=== PATIENT | female | born 1980 | race African-American/Black ===

== ENCOUNTER 2017-04-25 07:59 | Inpatient (IN) | payer OTHER ==
[~2017-04-25] VITALS: Ht 162.6 cm; Wt 93.9 kg
--- NOTE | 2017-04-25 08:10 | Emergency Room Report ---
History of Present Illness General Chief Complaint: chest pain Source: Patient Present Illness HPI Patient is a 37-year-old female presented after having increased right-sided chest pain. She describes this as a throbbing sensation. The patient states that she had increased right-sided chest soreness. She denies any change with exertion. She states that this had been present constantly for about a day. She prior history of marijuana smoking daily but denies cigarette smoker. She reports having no change in the pain with deep breath. Allergies: Coded Allergies: No Known Allergies (Unverified , 04/25/17) Patient History Past Medical History: see triage record Reviewed Nursing Documentation: PMH: Agreed, PSxH: Agreed Review of Systems All Other Systems: negative except mentioned in HPI Physical Exam Sp02 EP Interpretation: reviewed, normal General Appearance: normal inspection, well appearing, no apparent distress, alert, GCS 15 Head: atraumatic ENT: normal ENT inspection, hearing grossly normal, normal voice Neck: normal inspection, full range of motion, supple, no bony tend Respiratory: normal inspection, lungs clear, normal breath sounds, no respiratory distress, no retraction, no wheezing Cardiovascular #1: regular rate, rhythm, no edema Gastrointestinal: normal inspection, normal bowel sounds, non tender, soft, no guarding, no hernia Genitourinary: no CVA tenderness Musculoskeletal: normal inspection, back normal, normal range of motion Neurologic: normal inspection, alert, oriented x3, responsive, 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 Differential diagnosis included but was not limited to acute coronary syndrome, pulmonary embolism, pneumonia, aortic dissection, shingles, pneumothorax, aortic dissection, esophageal rupture, pericarditis. Because of complexity of patient's case laboratory testing and imaging studies were ordered.A d-dimer was noted be negative. EKG interpreted by me showed normal sinus rhythm with a rate of 60s with nonspecific T-wave inversion. Patient was given aspirin as well as pain medication. A chest x- ray one view interpreted by me showed low lung volumes without evident infiltrate normal cardiac size. Because the patient's concerning history patient be admitted for further evaluation to Dr. hooks Labs Test 04/25/17 08:22 04/25/17 08:55 White Blood Count 5.7 K/UL (4.8-10.8) Red Blood Count 4.34 M/UL (4.20-5.40) Hemoglobin 13.7 G/DL (12.0-16.0) Hematocrit 41.9 % (37.0-47.0) Mean Corpuscular Volume 96 FL (80-99) Mean Corpuscular Hemoglobin 31.6 PG (27.0-31.0) Mean Corpuscular Hemoglobin Concent 32.8 G/DL (32.0-36.0) Red Cell Distribution Width 12.8 % (11.6-14.8) Platelet Count 240 K/UL (150-450) Mean Platelet Volume 7.6 FL (6.5-10.1) Neutrophils (%) (Auto) 63.2 % (45.0-75.0) Lymphocytes (%) (Auto) 25.6 % (20.0-45.0) Monocytes (%) (Auto) 9.1 % (1.0-10.0) Eosinophils (%) (Auto) 0.9 % (0.0-3.0) Basophils (%) (Auto) 1.2 % (0.0-2.0) D-Dimer 321 ng/mL (<500) Sodium Level 139 mEQ/L (135-145) Potassium Level 3.8 mEQ/L (3.4-4.9) Chloride Level 102 mEQ/L (98-107) Carbon Dioxide Level 27 mEQ/L (20-30) Anion Gap 10 (5-15) Blood Urea Nitrogen 8 mg/dL (7-23) Creatinine 0.7 mg/dL (0.5-0.9) Estimat Glomerular Filtration Rate > 60 mL/min (>60) Glucose Level 120 mg/dL (74-106) Calcium Level 8.7 mg/dL (8.6-10.2) Total Bilirubin 0.3 mg/dL (0.0-1.2) Aspartate Amino Transf (AST/SGOT) 15 U/L (5-40) Alanine Aminotransferase (ALT/SGPT) 17 U/L (3-33) Alkaline Phosphatase 58 U/L (35-104) Total Creatine Kinase 259 U/L (26-140) Creatine Kinase MB 1.8 ng/mL (< 3.8) Creatine Kinase MB Relative Index 0.6 Troponin I < 0.30 ng/mL (<=0.30) Pro-B-Type Natriuretic Peptide 20 pg/mL (0-125) Total Protein 7.4 g/dL (6.6-8.7) Albumin 4.4 g/dL (3.5-5.2) Globulin 3.0 g/dL Albumin/Globulin Ratio 1.4 (1.0-2.7) Urine HCG, Qualitative Negative Status: unchanged Disposition: ADMITTED INPATIENT Darryl John Apr 25, 2017 08:10
[2017-04-25] MEDS ORDERED: NKM (08:11)
[2017-04-25] MEDS ORDERED: Aspirin Baby 81mg ORAL ONE (08:15)
[2017-04-25 08:32] VITALS: BP 134/54
[2017-04-25 08:48] LABS: BASOPHILS % (AUTO) 1.2 % (0.0-2.0); EOSINOPHILS % (AUTO) 0.9 % (0.0-3.0); LYMPHOCYTES % (AUTO) 25.6 % (20.0-45.0); MEAN CORPUSCULAR HEMOGLOBIN 31.6 PG (27.0-31.0); MEAN CORPUSCULAR HGB CONC 32.8 G/DL (32.0-36.0); MEAN CORPUSCULAR VOLUME 96 FL (80-99); MEAN PLATELET VOLUME 7.6 FL (6.5-10.1); MONOCYTES % (AUTO) 9.1 % (1.0-10.0); NEUTROPHILS % (AUTO) 63.2 % (45.0-75.0); PLATELET COUNT 240 K/UL (150-450); RED BLOOD COUNT 4.34 M/UL (4.20-5.40); RED CELL DISTRIBUTION WIDTH 12.8 % (11.6-14.8); WHITE BLOOD COUNT 5.7 K/UL (4.8-10.8)
[2017-04-25 09:03] LABS: ALANINE AMINOTRANSFERASE 17 U/L (3-33); ALBUMIN/GLOBULIN RATIO 1.4 (1.0-2.7); ANION GAP 10 (5-15); ASPARTATE AMINO TRANSFERASE 15 U/L (5-40); CALCIUM 8.7 mg/dL (8.6-10.2); CARBON DIOXIDE 27 mEQ/L (20-30); CHLORIDE 102 mEQ/L (98-107); CREATININE 0.7 mg/dL (0.5-0.9); GLOMERULAR FILTRATION RATE > 60 mL/min (>60); HEMOLYSIS 4; POTASSIUM 3.8 mEQ/L (3.4-4.9); SODIUM 139 mEQ/L (135-145); TOTAL PROTEIN 7.4 g/dL (6.6-8.7)
[2017-04-25 09:07] LABS: TROPONIN I < 0.30 ng/mL (<=0.30)
[2017-04-25 09:13] LABS: CKMB 1.8 ng/mL (< 3.8)
--- NOTE | 2017-04-25 09:38 | Diagnostic Imaging Report ---
Indication: Chest pain Technique: XRAY CHEST 1 V Comparison: None Findings: There is poor inspiration with bronchovascular crowding. Cardiomediastinal silhouette is within normal limits. There is no consolidation or pleural effusion. Osseous structures demonstrate no acute abnormality. Impression: Poor inspiration with bronchovascular crowding. Mild pulmonary vascular congestion not excluded. Followup recommended.
[2017-04-25 10:45] VITALS: BP 130/74
[2017-04-25] MEDS ORDERED: Morphine Sulfate 2mg/ml Inj IVP ONE (11:15)
--- NOTE | 2017-04-25 12:54 | History and Physical ---
History of Present Illness General Date patient seen: Apr 25, 2017 Time patient seen: 12:00 Reason for Hospitalization: Chest Pain Present Illness HPI 37y/old female presented with c/o right sided chest pain x 1 month, worse today pain is constantly present radiates to the back reports R side chest soreness no SOB, no exertional component, denies any change with exertion. denies fevers, chills, cough, congestion no wheezing, admits to smoking marijuana on a daily basis, no cigarette smoker denies illicit drug use, ETOH-socially admits to lots of stress in her life, anxiety workup in ED revealed stable VS, pulse oz stable o RA labs unremarkable ECG with TWI in lateral leads D dimer -321 urine test negative CXR with Poor inspiration with bronchovascular crowding. Mild pulmonary vascular congestion not excluded. mother at 40 form heart attack patient is being admitted to r/o ACS Allergies: Coded Allergies: No Known Allergies (Unverified , 04/25/17) Medication History Scheduled No Known Medications* (NKM - No Known Medications*), 0 ., (Reported) Patient History Healthcare decision maker Resuscitation status Advanced Directive on File Review of Systems Constitutional: Reports: no symptoms Eye: Reports: no symptoms ENT: Reports: no symptoms Respiratory: Reports: see HPI Cardiovascular: Reports: see HPI Gastrointestinal: Reports: no symptoms Genitourinary: Reports: no symptoms Musculoskeletal: Reports: no symptoms Skin: Reports: no symptoms Psychiatric: Reports: other - anxiety Neurological: Reports: no symptoms Hematologic/Lymphatic: Reports: no symptoms Physical Exam General Appearance: no apparent distress, obese - A/A/O x 4 AA female Lines, tubes and drains: peripheral HEENT: normocephalic, atraumatic, anicteric, mucous membranes moist, PERRL Neck: non-tender, supple Respiratory/Chest: chest wall non-tender, lungs clear, normal breath sounds, no respiratory distress, no accessory muscle use Cardiovascular/Chest: normal peripheral pulses, normal rate - SR on saurav with TWI lateral leads , regular rhythm, no JVD Abdomen: normal bowel sounds, non tender, soft Extremities: normal range of motion, non-tender, normal inspection, no calf tenderness, normal capillary refill, no edema Skin Exam: normal pigmentation, warm/dry 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, no motor/sensory deficits, alert, oriented x 3, responsive, depressed affect Last 24 Hour Vital Signs Date Time Temp Pulse Resp B/P (MAP) Pulse Ox O2 Delivery O2 Flow Rate FiO2 04/25/17 10:45 98.9 59 15 130/74 100 Room Air 04/25/17 08:32 99.0 62 20 134/54 100 Room Air 04/25/17 08:31 60 20 Room Air 04/25/17 08:07 99.1 62 14 145/87 100 Room Air Intake and Output 04/25/17 04/26/17 18:59 06:59 Intake Total 0 ml Balance 0 ml Intake Oral 0 ml # Voids 1 Laboratory Tests Test 04/25/17 08:22 04/25/17 08:55 White Blood Count 5.7 K/UL (4.8-10.8) Red Blood Count 4.34 M/UL (4.20-5.40) Hemoglobin 13.7 G/DL (12.0-16.0) Hematocrit 41.9 % (37.0-47.0) Mean Corpuscular Volume 96 FL (80-99) Mean Corpuscular Hemoglobin 31.6 PG (27.0-31.0) H Mean Corpuscular Hemoglobin Concent 32.8 G/DL (32.0-36.0) Red Cell Distribution Width 12.8 % (11.6-14.8) Platelet Count 240 K/UL (150-450) Mean Platelet Volume 7.6 FL (6.5-10.1) Neutrophils (%) (Auto) 63.2 % (45.0-75.0) Lymphocytes (%) (Auto) 25.6 % (20.0-45.0) Monocytes (%) (Auto) 9.1 % (1.0-10.0) Eosinophils (%) (Auto) 0.9 % (0.0-3.0) Basophils (%) (Auto) 1.2 % (0.0-2.0) D-Dimer 321 ng/mL (<500) Sodium Level 139 mEQ/L (135-145) Potassium Level 3.8 mEQ/L (3.4-4.9) Chloride Level 102 mEQ/L (98-107) Carbon Dioxide Level 27 mEQ/L (20-30) Anion Gap 10 (5-15) Blood Urea Nitrogen 8 mg/dL (7-23) Creatinine 0.7 mg/dL (0.5-0.9) Estimat Glomerular Filtration Rate > 60 mL/min (>60) Glucose Level 120 mg/dL (74-106) H Calcium Level 8.7 mg/dL (8.6-10.2) Total Bilirubin 0.3 mg/dL (0.0-1.2) Aspartate Amino Transf (AST/SGOT) 15 U/L (5-40) Alanine Aminotransferase (ALT/SGPT) 17 U/L (3-33) Alkaline Phosphatase 58 U/L (35-104) Total Creatine Kinase 259 U/L (26-140) H Creatine Kinase MB 1.8 ng/mL (< 3.8) Creatine Kinase MB Relative Index 0.6 Troponin I < 0.30 ng/mL (<=0.30) Pro-B-Type Natriuretic Peptide 20 pg/mL (0-125) Total Protein 7.4 g/dL (6.6-8.7) Albumin 4.4 g/dL (3.5-5.2) Globulin 3.0 g/dL Albumin/Globulin Ratio 1.4 (1.0-2.7) Urine HCG, Qualitative Negative Height (Feet): 5 Height (Inches): 4.00 Weight (Pounds): 207 Assessment/Plan Assessment/Plan ASSESSMENT chest pain r/o ACS abnormal ECG with TWI laterally anxiety/depression family hx of early cardiac obesity marijuana smoker PLAN OF CARE tele serial troponin repeat ECG in am ECHO cardio eval pain management with nitro and Morphine prn start ASA lipid panel consider psych eval to start on anxiolytic therapy senior counsel commercial to decrease marijuana use DVT GI prophylaxis case discussed and evaluated by supervising physician Jordan (Ayeshahair)Cata NP Apr 25, 2017 12:54
[2017-04-25] MEDS ORDERED: Miralax 17gm pkt ORAL PRN (13:30)
[2017-04-25] MEDS ORDERED: Nitroglycerin Subl 0.4mg tab SL PRN (13:30)
[2017-04-25] MEDS ORDERED: Mylanta II UD 30ml ORAL PRN (13:30)
[2017-04-25 13:53] VITALS: BP 125/68
[2017-04-25 15:51] LABS: TROPONIN I < 0.30 ng/mL (<=0.30)
[2017-04-25] MEDS: Morphine Sulfate 4mg/ml Inj IVP PRN ×2 (15:55→20:15)
[2017-04-25] MEDS: Heparin 5000 units/ml inj SUBQ SCH (20:06)
[2017-04-25 20:11] VITALS: BP 133/87
[2017-04-26] VITALS (7 sets, daily range): BP systolic 137–146; BP diastolic 81–94
[2017-04-26] MEDS: Morphine Sulfate 4mg/ml Inj IVP PRN (00:41)
[2017-04-26 07:00] LABS: ANION GAP 11 (5-15); CALCIUM 8.7 mg/dL (8.6-10.2); CARBON DIOXIDE 27 mEQ/L (20-30); CHLORIDE 105 mEQ/L (98-107); CHOLESTEROL 196 mg/dL (< 200); CHOLESTEROL/HDL RATIO 4.2 (3.3-4.4); CREATININE 0.8 mg/dL (0.5-0.9); GLOMERULAR FILTRATION RATE > 60 mL/min (>60); HEMOLYSIS 2; LDL CHOLESTEROL (CALC.) 128 mg/dL (60-99); MAGNESIUM 2.2 mg/dL (1.7-2.5); POTASSIUM 3.7 mEQ/L (3.4-4.9); SODIUM 143 mEQ/L (135-145)
[2017-04-26 07:03] LABS: BASOPHILS % (AUTO) 1.2 % (0.0-2.0); EOSINOPHILS % (AUTO) 1.5 % (0.0-3.0); LYMPHOCYTES % (AUTO) 47.8 % (20.0-45.0); MEAN CORPUSCULAR HEMOGLOBIN 32.6 PG (27.0-31.0); MEAN CORPUSCULAR HGB CONC 33.9 G/DL (32.0-36.0); MEAN CORPUSCULAR VOLUME 96 FL (80-99); MEAN PLATELET VOLUME 7.1 FL (6.5-10.1); MONOCYTES % (AUTO) 11.6 % (1.0-10.0); NEUTROPHILS % (AUTO) 37.9 % (45.0-75.0); PLATELET COUNT 233 K/UL (150-450); RED BLOOD COUNT 4.22 M/UL (4.20-5.40); RED CELL DISTRIBUTION WIDTH 12.7 % (11.6-14.8); WHITE BLOOD COUNT 4.4 K/UL (4.8-10.8)
[2017-04-26 07:06] LABS: TROPONIN I < 0.30 ng/mL (<=0.30)
[2017-04-26 07:20] LABS: HEMOGLOBIN A1C 5.3 % (< 6.0)
[2017-04-26] MEDS: Morphine Sulfate 2mg/ml Inj IVP PRN ×4 (07:48→23:07)
--- NOTE | 2017-04-26 08:39 | Pulmonology Progress Note ---
Assessment/Plan Assessment/Plan ASSESSMENT chest pain r/o ACS abnormal ECG with TWI laterally anxiety/depression family hx of early cardiac obesity marijuana smoker hypercholesteremia PLAN OF CARE tele serial troponin negative repeat ECG this am -TWI lateral ECHO done, results pending cardio eval pain management with nitro and Morphine prn on ASA CXR no acute cardiopulmonary pathology O2 to keep sat above 92% pulmonary toilet prn Venous Duplex BLE stat D dimer WNL probably low suspicion for PE ( no precipitating factors: no hormonal therapy, prolonged immobilization, malignancy), however, will do CTA lipid panel with elevated LDL, 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 and need to lose weight 3 months TLC , then repeat lipid panel if still elevated LDL, start statin psych eval pending consumer credit counselor to decrease marijuana use DVT GI prophylaxis case discussed and evaluated by supervising physician Subjective Allergies: Coded Allergies: No Known Allergies (Unverified , 04/25/17) Subjective still intermittent chest pain worse with deep inspiration on O2 pulse oximetry stable, no tachypnea Objective Last 24 Hour Vital Signs Date Time Temp Pulse Resp B/P (MAP) Pulse Ox O2 Delivery O2 Flow Rate FiO2 04/26/17 08:24 97.7 74 18 146/94 99 Room Air 04/26/17 04:18 98.0 53 16 137/81 Room Air 04/26/17 04:00 57 04/26/17 00:06 98.1 58 16 137/92 Room Air 04/26/17 00:00 67 04/25/17 20:11 98.0 58 16 133/87 Room Air 04/25/17 20:00 58 04/25/17 16:00 61 04/25/17 14:02 98.8 16 125/68 100 Room Air 04/25/17 13:53 98.8 64 16 125/68 100 Room Air 04/25/17 10:45 98.9 59 15 130/74 100 Room Air Intake and Output 04/26/17 04/27/17 19:00 07:00 Intake Total 120 ml Balance 120 ml Intake Oral 120 ml Objective General Appearance: no apparent distress, obese - A/A/O x 4 AA female Lines, tubes and drains: peripheral HEENT: normocephalic, atraumatic, anicteric, mucous membranes moist, PERRL Neck: non-tender, supple Respiratory/Chest: chest wall non-tender, lungs clear, normal breath sounds, no respiratory distress, no accessory muscle use Cardiovascular/Chest: normal peripheral pulses, normal rate - SR on saurav with TWI lateral leads , regular rhythm, no JVD Abdomen: normal bowel sounds, non tender, soft Extremities: normal range of motion, non-tender, normal inspection, no calf tenderness, normal capillary refill, no edema Skin Exam: normal pigmentation, warm/dry 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, no motor/sensory deficits, alert, oriented x 3, responsive, depressed affect Laboratory Tests 04/25/17 08:55: Urine HCG, Qualitative Negative 04/25/17 15:30: Troponin I < 0.30 04/26/17 06:00: Troponin I < 0.30, White Blood Count 4.4L, Red Blood Count 4.22, Hemoglobin 13.7 , Hematocrit 40.5, Mean Corpuscular Volume 96, Mean Corpuscular Hemoglobin 32.6H , Mean Corpuscular Hemoglobin Concent 33.9, Red Cell Distribution Width 12.7, Platelet Count 233, Mean Platelet Volume 7.1, Neutrophils (%) (Auto) 37.9L, Lymphocytes (%) (Auto) 47.8H, Monocytes (%) (Auto) 11.6H, Eosinophils (%) (Auto ) 1.5, Basophils (%) (Auto) 1.2, Sodium Level 143, Potassium Level 3.7, Chloride Level 105, Carbon Dioxide Level 27, Anion Gap 11, Blood Urea Nitrogen 9 , Creatinine 0.8, Estimat Glomerular Filtration Rate > 60, Glucose Level 99, Hemoglobin A1c 5.3, Calcium Level 8.7, Magnesium Level 2.2, Triglycerides Level 106, Cholesterol Level 196, LDL Cholesterol 128H, HDL Cholesterol 47, Cholesterol/HDL Ratio 4.2, Thyroid Stimulating Hormone (TSH) 1.820 Current Medications Medications (Trade) Dose Ordered Sig/Kwan Route PRN Reason Start Time Stop Time Status Last Admin Dose Admin Acetaminophen (Tylenol) 650 mg Q4H PRN ORAL Mild Pain (Pain Scale 1-3) 04/25/17 13:30 05/25/17 13:29 Al Hydroxide/Mg Hydroxide (Mylanta II) 30 ml Q6H PRN ORAL dyspepsia 04/25/17 13:30 05/25/17 13:29 Albuterol/ Ipratropium (DuoNeb 0.5-3(2.5)mg/3ml) 3 ml Q4H PRN HHN Shortness of Breath 04/25/17 13:30 04/30/17 13:29 Aspirin (ASA) 81 mg DAILY ORAL 04/26/17 09:00 05/26/17 08:59 Dextrose (Dextrose 50%) STAT PRN IV Hypoglycemia 04/25/17 13:30 05/25/17 13:29 Heparin Sodium (Porcine) (Heparin 5000 units/ml) 5,000 units EVERY 12 HOURS SUBQ 04/25/17 21:00 05/25/17 20:59 04/25/17 20:06 Morphine Sulfate (Morphine Sulfate) 2 mg Q4H PRN IVP Severe Pain (Pain Scale 7-10) 04/26/17 07:30 05/02/17 13:29 04/26/17 07:48 Nitroglycerin (Ntg) 0.4 mg Q5M PRN SL Prn Chest Pain 04/25/17 13:30 05/25/17 13:29 Ondansetron HCl (Zofran) 4 mg Q6H PRN IVP Nausea & Vomiting 04/25/17 13:30 05/25/17 13:29 Polyethylene Glycol (Miralax) 17 gm DAILYPRN PRN ORAL Constipation 04/25/17 13:30 05/25/17 13:29 Ranitidine HCl (Zantac) 150 mg DAILY ORAL 04/26/17 09:00 05/26/17 08:59 Temazepam (Restoril) 15 mg QHS PRN ORAL Insomnia 04/25/17 21:00 05/02/17 20:59 Jordan VargasCata dubon NP Apr 26, 2017 08:39
[2017-04-26] MEDS: Aspirin Baby 81mg ORAL SCH (08:50)
[2017-04-26] MEDS: Heparin 5000 units/ml inj SUBQ SCH ×2 (08:52→21:12)
[2017-04-26] MEDS: DuoNeb 0.5-3(2.5)mg/3ml neb HHN PRN (09:19)
--- NOTE | 2017-04-26 09:20 | Diagnostic Imaging Report ---
Indication: Chest pain Technique: XRAY CHEST 1 V Comparison: 04/25/17 Findings: Cardiomediastinal silhouette is stable. There is no consolidation, pneumothorax or pleural effusion. Osseous structures are stable. Impression: No acute cardiopulmonary disease.
--- NOTE | 2017-04-26 14:36 | Cardiology Report ---
APPROVED REPORT EXAM: Two-dimensional and M-mode echocardiogram with Doppler and color Doppler. INDICATION Chest Pain M-Mode DIMENSIONS IVSd0.6 (0.7-1.1cm)Left Atrium (MM)3.3 (1.6-4.0cm) LVDd4.8 (3.5-5.6cm)Aortic Root2.5 (2.0-3.7cm) PWd0.6 (0.7-1.1cm)Aortic Cusp Exc.1.9 (1.5-2.0cm) IVSs1.1 cm LVDs2.8 (2.5-4.0cm) PWs1.1 cm Aortic Valve AoV VTI24.3cmAO Peak GR.309mmHgAI P 1/2 [id number] AO Mean GR.814mmHg LVOT [id number]/s Mitral Valve PRESS 1/2 [id number] E Velocity0.90cm/sMV A Velocity0.64cm/s DECEL [id number] ratio1.4 MR Peak Velocity2.03cm/s TDI E/Lateral E'0.1E/Medial E'0.1 Lateral E' Peak V13cm/sMedial E' Peak V12cm/s Tricuspid Valve TR Peak Velocity2.5cm/s Normal left ventricular chamber size, systolic function and wall motion. Left ventricular ejection fraction estimated to be 65-70%. No evidence of pericardial effusion A color flow and spectral Doppler study was performed and revealed: Mild Triscuspid regurgitation RVSP 30.54 mmHg Trace Mitral regurgitation IVC at normal size with / without physiologic collapse
[2017-04-27] VITALS: BP 132/92
[2017-04-27] MEDS: Morphine Sulfate 2mg/ml Inj IVP PRN ×3 (03:17→14:33)
[2017-04-27 04:00] VITALS: BP_SYST 132; BP_SYST 136; BP_DIAS 83; BP_DIAS 92
[2017-04-27] MEDS: DuoNeb 0.5-3(2.5)mg/3ml neb HHN PRN ×2 (07:38→17:47)
[2017-04-27 08:00] VITALS: BP 146/96
[2017-04-27 08:00] LABS: TROPONIN I < 0.30 ng/mL (<=0.30)
[2017-04-27] MEDS: Aspirin Baby 81mg ORAL SCH (08:10)
[2017-04-27] MEDS: Heparin 5000 units/ml inj SUBQ SCH (08:11)
[2017-04-27] MEDS ORDERED: Ketorolac 30mg Inj IV ONE (11:10)
--- NOTE | 2017-04-27 11:28 | Diagnostic Imaging Report ---
ndication: Shortness of breath and chest pain Technique: IV administration nonionic contrast. Spiral acquisitions obtained from the lung bases to the lung apices. Multiplanar and 3-D reconstructions were generated. Total dose length product 1525 mGycm. CTDIvol(s) 12x3, 25, 45 mGy. Dose reduction achieved using automated exposure control Comparison: None Findings: There is good quality opacification of the pulmonary arteries. No intraluminal filling defects or other findings to suggest acute pulmonary embolus demonstrated. Normal caliber pulmonary arteries. No evidence of right ventricular dilatation or atrial septal bowing. Heart size is normal. No evidence of thoracic aortic aneurysm or dissection. The lungs are clear. No acute infiltrates, effusions, or congestion. No mediastinal or hilar mass or adenopathy. No pericardial effusion. Visualized thyroid is unremarkable. No axillary or chest wall mass or adenopathy demonstrated. The bones are unremarkable. The included upper abdominal anatomy is unremarkable. Impression: Essentially unremarkable exam. Negative for acute pulmonary embolus or other thoracic pathology. This agrees with the preliminary interpretation provided overnight by Dr. Quinones The CT scanner at [facility] is accredited by the [employer] and the scans are performed using protocols designed to limit radiation exposure to as low as reasonably achievable to attain images of sufficient resolution adequate for diagnostic evaluation.
[2017-04-27 12:00] VITALS: BP 135/95
[2017-04-27] MEDS ORDERED: ALBUTEROL SULF8.5 GM INH (12:30)
[2017-04-27] MEDS ORDERED: ASPIRIN81 MG ORAL (12:30)
--- NOTE | 2017-04-27 12:36 | Pulmonology Progress Note ---
Assessment/Plan Problems: (1) ACS (acute coronary syndrome) (2) Costochondritis (3) GERD (gastroesophageal reflux disease) (4) Anxiety Assessment/Plan echo, CT angio noted stress study pending Subjective ROS Limited/Unobtainable: No Interval Events: doing ok, still chest pain Allergies: Coded Allergies: No Known Allergies (Unverified , 04/25/17) Objective Last 24 Hour Vital Signs Date Time Temp Pulse Resp B/P (MAP) Pulse Ox O2 Delivery O2 Flow Rate FiO2 04/27/17 08:00 97.8 62 20 146/96 100 Room Air 04/27/17 07:42 68 20 99 Nasal Cannula 4.0 36 04/27/17 07:40 67 20 Nasal Cannula 4.0 36 04/27/17 07:39 32 04/27/17 07:38 61 22 98 Nasal Cannula 4.0 04/27/17 04:00 63 04/27/17 04:00 97.0 54 20 136/83 97 Room Air 2.0 21 04/27/17 00:00 71 04/27/17 00:00 97.3 64 20 132/92 99 Room Air 04/26/17 20:00 55 04/26/17 20:00 97.0 74 18 138/87 100 Nasal Cannula 2.0 04/26/17 19:30 75 16 Room Air 21 04/26/17 16:00 69 04/26/17 15:57 97.2 60 18 141/90 100 Nasal Cannula 2.0 General Appearance: WD/WN HEENT: normocephalic, atraumatic Respiratory/Chest: chest wall non-tender, lungs clear Breasts: no masses Cardiovascular: normal peripheral pulses, normal rate Abdomen: normal bowel sounds, soft, non tender Genitourinary: normal external genitalia Extremities: no cyanosis Skin: no ulcers Neurologic/Psychiatric: slip tender II-XII grossly normal, responsive, normal mood/ affect Laboratory Tests 04/27/17 07:00: Troponin I < 0.30 Current Medications Medications (Trade) Dose Ordered Sig/Kwan Route PRN Reason Start Time Stop Time Status Last Admin Dose Admin Acetaminophen (Tylenol) 650 mg Q4H PRN ORAL Mild Pain (Pain Scale 1-3) 04/25/17 13:30 05/25/17 13:29 Al Hydroxide/Mg Hydroxide (Mylanta II) 30 ml Q6H PRN ORAL dyspepsia 04/25/17 13:30 05/25/17 13:29 Albuterol/ Ipratropium (DuoNeb 0.5-3(2.5)mg/3ml) 3 ml Q4H PRN HHN Shortness of Breath 04/25/17 13:30 04/30/17 13:29 04/27/17 07:38 Aspirin (ASA) 81 mg DAILY ORAL 04/26/17 09:00 05/26/17 08:59 04/27/17 08:10 Dextrose (Dextrose 50%) STAT PRN IV Hypoglycemia 04/25/17 13:30 05/25/17 13:29 Heparin Sodium (Porcine) (Heparin 5000 units/ml) 5,000 units EVERY 12 HOURS SUBQ 04/25/17 21:00 05/25/17 20:59 04/27/17 08:11 Morphine Sulfate (Morphine Sulfate) 2 mg Q4H PRN IVP Severe Pain (Pain Scale 7-10) 04/26/17 07:30 05/02/17 13:29 04/27/17 07:34 Nitroglycerin (Ntg) 0.4 mg Q5M PRN SL Prn Chest Pain 04/25/17 13:30 05/25/17 13:29 Ondansetron HCl (Zofran) 4 mg Q6H PRN IVP Nausea & Vomiting 04/25/17 13:30 05/25/17 13:29 Polyethylene Glycol (Miralax) 17 gm DAILYPRN PRN ORAL Constipation 04/25/17 13:30 05/25/17 13:29 Ranitidine HCl (Zantac) 150 mg DAILY ORAL 04/26/17 09:00 05/26/17 08:59 04/27/17 08:09 Temazepam (Restoril) 15 mg QHS PRN ORAL Insomnia 04/25/17 21:00 05/02/17 20:59 ZEB LUNA Apr 27, 2017 12:36
--- NOTE | 2017-04-27 12:50 | Diagnostic Imaging Report ---
APPROVED REPORT CPT Code: 07135 Present Symptoms Lower Extremity Pain: Bilateral BILATERAL: Imaging reveals a patent deep venous system bilaterally. There is no evidence of thrombus within the femoral, popliteal or tibial segments. The greater saphenous veins are also within normal limits. Doppler indicates normal spontaneous flow within these segments.
[2017-04-27] MEDS ORDERED: Sucralfate 1gm tab ORAL SCH (13:00)
--- NOTE | 2017-04-27 15:00 | Consultation ---
History of Present Illness General Date patient seen: Apr 26, 2017 Chief Complaint: Chest Pain Present Illness HPI 37y/old female presented with c/o right sided chest pain x 1 month, worse pain is constantly present radiates to the back. the pt has been pw anxiety and insomnia for the past several weeks. the pt target sxs: fatigue, anxiety, decrease appetite, worrisome. no depressive sxs, no psychotic/manic sxs Allergies: Coded Allergies: No Known Allergies (Unverified , 04/25/17) Medication History Scheduled Albuterol Sulfate* (Albuterol Sulfate Mdi*), 2 PUFF INH Q3H Aspirin* (Aspirin*), 81 MG ORAL DAILY No Known Medications* (NKM - No Known Medications*), 0 ., (Reported) Paroxetine Hcl (Paxil), 20 MG PO QHS, (Reported) Paroxetine Hcl (Paxil), 20 MG PO QHS, (Reported) Paroxetine Hcl* (Paxil*), 20 MG ORAL QHS, (Reported) Patient History History Provided By: Patient, Medical Record, PMD Healthcare decision maker Resuscitation status Full Code Advanced Directive on File Past Medical/Surgical History Past Medical/Surgical History: (1) Chest pain (2) Anxiety (3) Costochondritis (4) GERD (gastroesophageal reflux disease) (5) ACS (acute coronary syndrome) Social History Social History: (1) Chest pain (2) Anxiety (3) Costochondritis (4) GERD (gastroesophageal reflux disease) (5) ACS (acute coronary syndrome) Review of Systems Constitutional: Reports: malaise, weakness Psychiatric: Reports: prior hx, anxiety, emotional problems Physical Exam General Appearance: alert, mild distress, overweight Neurologic: alert, oriented x 3, responsive, depressed affect Last 24 Hour Vital Signs Date Time Temp Pulse Resp B/P (MAP) Pulse Ox O2 Delivery O2 Flow Rate FiO2 04/27/17 12:00 69 04/27/17 08:00 62 04/27/17 08:00 97.8 62 20 146/96 100 Room Air 04/27/17 07:42 68 20 99 Nasal Cannula 4.0 36 04/27/17 07:40 67 20 Nasal Cannula 4.0 36 04/27/17 07:39 32 04/27/17 07:38 61 22 98 Nasal Cannula 4.0 04/27/17 04:00 63 04/27/17 04:00 97.0 54 20 136/83 97 Room Air 2.0 21 04/27/17 00:00 71 04/27/17 00:00 97.3 64 20 132/92 99 Room Air 04/26/17 20:00 55 04/26/17 20:00 97.0 74 18 138/87 100 Nasal Cannula 2.0 04/26/17 19:30 75 16 Room Air 21 04/26/17 16:00 69 04/26/17 15:57 97.2 60 18 141/90 100 Nasal Cannula 2.0 Laboratory Tests Test 04/27/17 07:00 Troponin I < 0.30 ng/mL (<=0.30) Height (Feet): 5 Height (Inches): 4.00 Weight (Pounds): 207 Medications Current Medications Medications (Trade) Dose Ordered Sig/Kwan Route PRN Reason Start Time Stop Time Status Last Admin Dose Admin Acetaminophen (Tylenol) 650 mg Q4H PRN ORAL Mild Pain (Pain Scale 1-3) 04/25/17 13:30 05/25/17 13:29 Al Hydroxide/Mg Hydroxide (Mylanta II) 30 ml Q6H PRN ORAL dyspepsia 04/25/17 13:30 05/25/17 13:29 Albuterol/ Ipratropium (DuoNeb 0.5-3(2.5)mg/3ml) 3 ml Q4H PRN HHN Shortness of Breath 04/25/17 13:30 04/30/17 13:29 04/27/17 07:38 Aspirin (ASA) 81 mg DAILY ORAL 04/26/17 09:00 05/26/17 08:59 04/27/17 08:10 Dextrose (Dextrose 50%) STAT PRN IV Hypoglycemia 04/25/17 13:30 05/25/17 13:29 Heparin Sodium (Porcine) (Heparin 5000 units/ml) 5,000 units EVERY 12 HOURS SUBQ 04/25/17 21:00 05/25/17 20:59 04/27/17 08:11 Morphine Sulfate (Morphine Sulfate) 2 mg Q4H PRN IVP Severe Pain (Pain Scale 7-10) 04/26/17 07:30 05/02/17 13:29 04/27/17 14:33 Nitroglycerin (Ntg) 0.4 mg Q5M PRN SL Prn Chest Pain 04/25/17 13:30 05/25/17 13:29 Ondansetron HCl (Zofran) 4 mg Q6H PRN IVP Nausea & Vomiting 04/25/17 13:30 05/25/17 13:29 Pantoprazole (Protonix) 40 mg BIAC ORAL 04/27/17 16:30 05/27/17 16:29 Polyethylene Glycol (Miralax) 17 gm DAILYPRN PRN ORAL Constipation 04/25/17 13:30 05/25/17 13:29 Sucralfate (Carafate) 1 gm FOUR TIMES A DAY ORAL 04/27/17 13:00 05/27/17 12:59 04/27/17 14:33 Temazepam (Restoril) 15 mg QHS PRN ORAL Insomnia 04/25/17 21:00 05/02/17 20:59 Assessment/Plan Status: stable Assessment/Plan Anxiety d/o, Panic d/o Paxil 20mg qhs provided keyur/Keith Oliva M.D. Apr 27, 2017 15:00
[2017-04-27 16:00] VITALS: BP 132/85
[2017-04-27] MEDS ORDERED: PAXIL10 MG/5 ML PO ×2 (16:41→16:42)
[2017-04-27] MEDS ORDERED: PAXIL10 MG ORAL (16:43)
--- NOTE | 2017-04-28 14:36 | Discharge Summary ---
Discharge Summary Hospital Course Date of Admission Apr 25, 2017 at 10:43 Date of Discharge Apr 27, 2017 at 18:11 Admitting Diagnosis chest pain, acute coronary syndrome HPI Zoë Ibanez is a 37 year old female who was admitted on Apr 25, 2017 at 10:43 for Chest Pain,Acute Coronary Syndrome Hospital Course dc summary #[id number] Discharge Medications New Medications: Albuterol Sulfate* (Albuterol Sulfate Mdi*) 8.5 Gm Hfa.aer.ad 2 PUFF INH Q3H, #1 INH 0 Refills Aspirin* (Aspirin*) 81 Mg Tab.chew 81 MG ORAL DAILY for 30 Days, TAB Continued Medications: Paroxetine Hcl* (Paxil*) 10 Mg Tablet 20 MG ORAL QHS for 30 Days, TAB 0 Refills Discharge Condition Upon Discharge: stable Discharge Disposition Patient was discharged to Home () Discharge Diagnoses: Jordan (Maryjo)Cata NP Apr 28, 2017 14:36
--- NOTE | 2017-04-29 10:31 | Discharge Summary 2 SIG ---
DATE OF ADMISSION: 04/25/2017 DATE OF DISCHARGE: 04/27/2017 Reason For Admission: 37-year-old female presented with complaint of right-sided chest pain for one month, worse on the day of presentation. Pain was constantly present, radiated to the back. The patient reported right-sided chest soreness. No shortness of breath. No exertional component. She denied any change with exertion. She denied fever, chills, cough, congestion, or wheezing. She admitted to smoking marijuana on a daily basis, but no cigarette smoking. She denied illicit drug use. Using alcohol socially. She admitted to lots of stress in her life recently and anxiety. Workup in the emergency room revealed stable vital signs. Pulse oximetry was stable on room air. Laboratories were unremarkable. EKG revealed T-wave inversion in lateral leads. D-dimer was 321. Urine test was negative. Chest x-ray revealed poor inspiration with bronchovascular crowding. Mild pulmonary vascular congestion was not excluded. Mother at 40 from heart attack. The patient was admitted to rule out acute coronary syndrome. ADMITTING DIAGNOSES: 1. Chest pain, 2. Rule out acute coronary syndrome. 3. Abnormal EKG with T-wave inversion laterally. 4. Anxiety/depression. 5. Family history of early cardiac . 6. Obesity. 7. Marijuana smoker. Hospital Course: The patient was admitted to telemetry floor. Serial troponin were negative. Repeated EKG as well as intiial did not show any acute ischemic changes. Therefore, the patient was ruled out for acute myocardial infarction as per protocol. Cardiology evaluation was requested. Echocardiogram revealed ejection fraction of 65% to 70%. No wall motion abnormalities noted. Initial chest x-ray revealed poor inspiration with bronchovascular crowding. Mild pulmonary vascular congestion was not excluded. Followup chest x-ray the next day revealed no acute cardiopulmonary disease. The patient complained of the chest pain worse with deep inspiration. Since chest x-ray was negative, venous duplex and CTA were done. Venous duplex was negative for any evidence of acute DVT and CTA of the chest revealed no evidence of pulmonary emboli and was negative for other thoracic pathology. Spoke with press service reader , dr Gonzalez, who suggested to have treadmill stress test given the fact that she had a strong family history of early cardiac in the family. Treadmill stress test was done, was unremarkable. Lipid panel was stable except elevated LDL of 128. Patient was counseled on a low-cholesterol and low-fat diet and need to lose weight. Recommended three months therapeutic lifestyle changes and repeat lipid panel. If still elevated LDL, then recommend to start statin. In addition, psychiatric consultation was requested secondary to the patient's anxiety and depression since it was felt that chest pain was noncardiac and likely related to anxiety or depression. Psychiatrist had seen and evaluated the patient and started the patient on Paxil , in addition she provided reality orientation.The patient was counseled to find ways to reduce stress in her life and different ways to relieve anxiety along with the medication Patient's condition was discussed with press service reader who felt importance of ordering treadmill stress test, given family history of early cardiac . However, if negative , press service reader recommended to discharge home, and no need for press service reader to see her. Treadmill stress test was negative as mentioned above. The patient was stable for discharge home. FINAL DIAGNOSIS 1. Noncardiac chest pain, likely related to anxiety and depression. 2. Anxiety/depression. 3. Abnormal EKG with T-wave inversion laterally, no acute changes. 4. Family history of early cardiac . 5. Obesity. 6. Marijuana smoker. 7. Hypercholesterolemia. DISCHARGE MEDICATIONS: See medication reconciliation list. Discharge Instructions: The patient was discharged home. Follow up with the primary care provider. Rajat Santiago M.D. [facility] N[place] DR: Saroj JOB#: [id number] CC: BARBIE
--- NOTE | 2017-05-01 15:53 | Cardiology Report ---
APPROVED REPORT EKG Measurement Heart [id number] CO [id number] Normal sinus rhythm with sinus arrhythmia Nonspecific T wave abnormality Abnormal ECG
== END 2017-04-27 18:11 | disposition home or self-care (01) | DRG 203 ==
LOC: EMR 08:10 → 2E 10:43 → EDBEDREQ 10:46 → 2E 04-26 08:53
DX: M94.0 Chondrocostal junction syndrome [Tietze] (principal); E66.9 Obesity, unspecified; R07.89 Other chest pain; K21.9 Gastro-esophageal reflux disease without esophagitis; F41.8 Other specified anxiety disorders; Z82.41 Family history of sudden cardiac death; Z68.35 Body mass index [BMI] 35.0-35.9, adult; F12.90 Cannabis use, unspecified, uncomplicated; E78.00 Pure hypercholesterolemia, unspecified; R94.31 Abnormal electrocardiogram [ECG] [EKG]; G47.00 Insomnia, unspecified
CPT/HCPCS: 36415; 71010; 71275; 80048; 80053; 80061; 81025; 82550; 82553; 83036; 83735; 83880; 84443; 84484; 85025; 85379; 93005; 93017; 93306; 93970; 94640; 94664; 99285; J7620

== ENCOUNTER 2017-04-30 12:14 | Emergency (ER) | payer OTHER ==
[~2017-04-30] VITALS: Ht 152.4 cm; Wt 93.4 kg
[~2017-04-30 12:14] MED LIST: ALBUTEROL SULF8.5 GM INH; ASPIRIN81 MG ORAL; NKM; PAXIL10 MG ORAL; PAXIL10 MG/5 ML PO
[2017-04-30 12:23] VITALS: BP 147/77
[2017-04-30 12:51] VITALS: BP 134/81
--- NOTE | 2017-05-02 08:26 | Emergency Room Report ---
History of Present Illness General Chief Complaint: Chest Pain Source: Patient, Medical Record Present Illness HPI Patient presents with complaints of chest pain Complains of mid sternal discomfort Some right-sided She feels the pain has continued since she was discharged from the hospital Denies any headache or visual changes denies any lower abdominal pain Pain is sharp at times burning Allergies: Coded Allergies: No Known Allergies (Unverified , 04/25/17) Patient History Past Medical History: see triage record Pertinent Family History: none Last Menstrual Period: 04/27/17 Reviewed Nursing Documentation: PMH: Agreed, PSxH: Agreed Nursing Documentation-PMH Past Medical History: No History, Except For Hx Cardiac Problems: No Hx Asthma: Yes Hx Cancer: No Hx Gastrointestinal Problems: No Hx Neurological Problems: No Review of Systems All Other Systems: negative except mentioned in HPI Physical Exam Vital Signs Date Time Temp Pulse Resp B/P (MAP) Pulse Ox O2 Delivery O2 Flow Rate FiO2 04/30/17 12:23 62 18 Room Air 04/30/17 12:23 98.2 147/77 100 Sp02 EP Interpretation: reviewed, normal General Appearance: mild distress - Patient appears uncomfortable Head: normocephalic, atraumatic Eyes: bilateral eye PERRL, bilateral eye EOMI ENT: hearing grossly normal, normal pharynx, TMs + canals normal, uvula midline Neck: full range of motion, supple, no meningismus, no bony tend Respiratory: lungs clear, normal breath sounds, no rhonchi, no respiratory distress, no retraction, no accessory muscle use Cardiovascular #1: normal peripheral pulses, regular rate, rhythm, no edema, no gallop, no JVD, no murmur Gastrointestinal: normal bowel sounds, non tender, soft, no mass, no organomegaly, non-distended, no guarding, no hernia, no pulsatile mass, no rebound Musculoskeletal: normal inspection Neurologic: oriented x3, responsive, turkey pinner III-XII nml as tested, motor strength/ tone normal, sensory intact Skin: normal color, no rash, warm/dry, palpation normal Lymphatic: normal inspection, no adenopathy Medical Decision Making Diagnostic Impression: Primary Impression: Chest pain ER Course Patient is a fairly complex patient with multiple differential to consideration including but not limited to cardiac cardiopulmonary and vascular emergencies Patient also has fairly pertinent family history EKG was performed which is normal Patient's recent hospitalization was reviewed There is a cardiac echo, a CT chest and fairly extensive workup that was reviewed Patient is here with family who are concerned about the patient's presentation Did also request another exam for blood clot in the lungs I did discuss the concerns regarding, repeat CAT scan imaging with contrast This is not felt to be appropriate given the recent exam The family is on for showing not satisfied with the evaluation and answers that they are being given I did reiterate that there is no obvious emergent findings that have been found and that the patient is stable for close outpatient followup EKG Diagnostic Results Rate: normal Rhythm: NSR ST Segments: no acute changes Rhythm Strip Diag. Results EP Interpretation: yes Rate: 77 Rhythm: NSR, no PVC's, no ectopy Last Vital Signs Date Time Temp Pulse Resp B/P (MAP) Pulse Ox O2 Delivery O2 Flow Rate FiO2 04/30/17 12:51 68 20 134/81 100 Room Air 04/30/17 12:23 98.2 Status: unchanged Disposition: HOME, SELF-CARE Condition: Stable Referrals: [facility],REFERR[facility] (PCP) Patient Instructions: Nonspecific Chest Pain Additional Instructions: Patient is provided with the discharge instructions notified to follow up with primary doctor in the next 2-3 days otherwise return to the er with any worsening symptoms. Please note that this report is being documented using DRAGON technology. This can lead to erroneous entry secondary to incorrect interpretation by the dictating instrument. MARGOT FERNANDEZ D.O. May 02, 2017 08:26
== END 2017-04-30 13:00 | disposition home or self-care (01) ==
LOC: EMR 12:30
DX: R07.89 Other chest pain (principal); J45.909 Unspecified asthma, uncomplicated
CPT/HCPCS: 99283

== ENCOUNTER 2017-07-10 17:19 | Emergency (ER) | payer OTHER ==
[~2017-07-10] VITALS: Ht 162.6 cm; Wt 93.9 kg
[2017-07-10 17:40] VITALS: BP 132/84
[2017-07-10] MEDS ORDERED: Ketorolac 30mg Inj IM ONE (17:45)
[2017-07-10] MEDS ORDERED: ROBAXIN-750750 MG PO (18:04)
[2017-07-10] MEDS ORDERED: IBUPROFEN600 MG ORAL (18:04)
[2017-07-10 18:11] VITALS: BP 128/82
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
== END 2017-07-10 18:15 | disposition home or self-care (01) ==
LOC: EMR 18:01
DX: S39.012A Strain of muscle, fascia and tendon of lower back, initial encounter (principal); V43.52XA Car driver injured in collision with other type car in traffic accident, initial encounter; Y92.410 Unspecified street and highway as the place of occurrence of the external cause; J45.909 Unspecified asthma, uncomplicated
CPT/HCPCS: 96372; 99284; J1885

== ENCOUNTER 2020-01-05 09:46 | Emergency (ER) | payer OTHER ==
[~2020-01-05] VITALS: Ht 162.6 cm; Wt 96.6 kg
[~2020-01-05 09:46] MED LIST changes: +IBUPROFEN600 MG ORAL; +ROBAXIN-750750 MG PO
[2020-01-05 09:53] VITALS: BP 141/97
--- NOTE | 2020-01-05 10:55 | Emergency Room Report ---
History of Present Illness General Chief Complaint: Pain Source: Patient Present Illness HPI This patient states that for the past month she has noted that her right Achilles tendon has been sore. 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 She does a lot of stopping and starting. She states that this has been ongoing for weeks. She states it is aggravated by movement. She is also noted some slight swelling around the tendon and in the ankle. She denies injury or trauma. She denies recent illness. She denies fever or chills. She denies cough or congestion. She has no other joint pain other than some chronic pain in her knees. She has no other complaints. Allergies: Coded Allergies: No Known Allergies (Unverified , 04/25/17) COVID-19 Screening Contact w/high risk pt: No Recent Travel to affected area: No Experienced COVID-19 symptoms?: No COVID-19 Testing performed IRON WORKER: No Patient History Past Medical History: see triage record, asthma, other - HLP Social History: Denies: smoking, alcohol use, drug use Last Menstrual Period: 12/12/19 Now: No Reviewed Nursing Documentation: PMH: Agreed; PSxH: Agreed Nursing Documentation-PMH Past Medical History: No History, Except For Hx Cardiac Problems: No Hx Asthma: Yes Hx Cancer: No Hx Gastrointestinal Problems: No Hx Neurological Problems: No Review of Systems All Other Systems: negative except mentioned in HPI Physical Exam Vital Signs Date Time Temp Pulse Resp B/P (MAP) Pulse Ox O2 Delivery O2 Flow Rate FiO2 01/05/20 09:51 98.8 68 16 141/97 (112) 98 Room Air Sp02 EP Interpretation: reviewed, normal General Appearance: no apparent distress, alert, GCS 15, non-toxic Head: normocephalic, atraumatic ENT: hearing grossly normal, no angioedema, normal voice Neck: normal inspection Respiratory: no respiratory distress, no retraction, no accessory muscle use, speaking full sentences Rectal: deferred Musculoskeletal: back normal, normal range of motion, other - Antalgic gait. + ttp along the R. achilles tendon with associated minimal/mild swelling. No erythema or warmth. Neurologic: alert, motor strength/tone normal, oriented x3, sensory intact, responsive, speech normal Psychiatric: judgement/insight normal, memory normal, mood/affect normal, no suicidal/homicidal ideation Skin: no rash, normal color Medical Decision Making Diagnostic Impression: Primary Impression: Achilles tendinitis ER Course This patient has findings of Achilles tendinitis on exam. The patient has pain with palpation of the Achilles tendon. There is some mild associated swelling. There is no erythema or warmth that would make me concerned for a septic joint. The Achilles tendon is intact and not ruptured. The patient was given IM Toradol. A plain film x-ray was obtained that showed no acute findings of the right ankle. An Pedro Luis wrap was placed for comfort. The patient was educated that she would need to follow-up with a electronic gluing machine operator or orthopedist for further evaluation of her Achilles tendinitis. I did not identify any emergency medical condition and do not feel that any further evaluation in the emergency department is indicated. However, I did educate the patient that she would need to be seen further by 1 of these specialists as mentioned. She indicated understanding and intention to do so. She states she can easily follow-up with her primary care physician and obtain this referral. She is given close return precautions and follow-up instructions. I warned the patient that plain x-rays have a significant false-negative rate. Factors, significant soft tissue injuries, and other pathology may be present even though not seen on x-ray. Injuries serious enough to ultimately require surgery may be present with normal x-rays. This can occur because some fractures or not initially visible on plain film x-rays or, rarely, the radiologist may discover a subtle fracture that I missed on my preliminary read. It was explained that close outpatient followup is required to evaluate this possibility. If all symptoms resolve or improve significantly in the coming weeks, no further testing is needed. However, if the pain/symptoms persist, additional studies such as MRI/CT or repeat x-ray would be needed to rule out the possibility of serious soft tissue injury. The patient agreed to followup as directed. Other X-Ray Diagnostic Results Other X-Ray Diagnostic Results : X-Ray ordered: R. ankle xray # of Views/Limited Vs Complete: Complete Indication: Pain EP Interpretation: Yes Interpretation: no fractures Impression: No acute disease Electronically Signed by: Florence Quesada DO Last Vital Signs Date Time Temp Pulse Resp B/P (MAP) Pulse Ox O2 Delivery O2 Flow Rate FiO2 01/05/20 09:53 98.8 68 16 141/97 98 Room Air Status: improved Disposition: HOME, SELF-CARE Condition: Improved Referrals: [facility],REFERRING (PCP) Florence Quesada DO Jan 05, 2020 10:55
--- NOTE | 2020-01-05 10:57 | Diagnostic Imaging Report ---
Indication: Right ankle pain Technique: 3 views of the right ankle Comparison: none Findings: No acute fractures. No dislocations. The joint spaces are preserved. Impression: Negative
[2020-01-05] MEDS ORDERED: Ketorolac 60mg Inj IM ONE (11:00)
[2020-01-05] MEDS ORDERED: TRAMADOL HCL50 MG ORAL (12:02)
[2020-01-05 12:18] VITALS: BP 131/74
== END 2020-01-05 12:18 | disposition home or self-care (01) ==
LOC: EMR 09:58
DX: M76.61 Achilles tendinitis, right leg (principal); J45.909 Unspecified asthma, uncomplicated
CPT/HCPCS: 73610; 96372; Z7502; 99283

== ENCOUNTER 2020-04-04 13:51 | Emergency (ER) | payer OTHER ==
[~2020-04-04] VITALS: Ht 162.6 cm; Wt 91.2 kg
[~2020-04-04 13:51] MED LIST changes: +TRAMADOL HCL50 MG ORAL
--- NOTE | 2020-04-04 14:11 | NUR ---
ED Nurse Note: Pt walked in from home c/o worsening left shoulder pain x 1 month. Pt denies injury but c/o intermittent numbness in left hand. Respirations even and unlabored on room air. Vitals stable as documented. A+Ox4, speaking in full sentences.
[2020-04-04 14:16] VITALS: BP 130/86
--- NOTE | 2020-04-04 14:24 | Emergency Room Report ---
History of Present Illness General Chief Complaint: Pain Source: Patient Present Illness HPI 39-year-old female with no significant past medical history here complaining of over 1 month of left shoulder pain rating it 7 out of 10 with range of motion. Patient reports that she has been drives with left hand and shoulder. Complains of intermittent tingling. Denies any fall or injury. No impingement sign noted. Patient is neurovascularly intact. Has not taken medication for symptom relief. Denies any chest pain chest pain radiation. Denies headache and dizziness. Denies any strenuous physical activity. Denies . Allergies: Coded Allergies: No Known Allergies (Unverified , 04/25/17) COVID-19 Screening Contact w/high risk pt: No Recent Travel to affected area: No Experienced COVID-19 symptoms?: No COVID-19 Testing performed [place]: Yes - 2 weeks ago COVID-19 Screening: Negative COVID-19 COVID-19 Testing Source: mouth Patient History Past Medical History: see triage record Past Surgical History: none Pertinent Family History: none Now: No Immunizations: UTD Reviewed Nursing Documentation: PMH: Agreed; PSxH: Agreed Nursing Documentation-PMH Past Medical History: No History, Except For Hx Cardiac Problems: No Hx Asthma: Yes Hx Cancer: No Hx Gastrointestinal Problems: No Hx Neurological Problems: No Review of Systems All Other Systems: negative except mentioned in HPI Physical Exam Vital Signs Date Time Temp Pulse Resp B/P (MAP) Pulse Ox O2 Delivery O2 Flow Rate FiO2 04/04/20 13:56 98.4 63 16 130/86 (101) 99 Room Air Sp02 EP Interpretation: reviewed, normal General Appearance: no apparent distress, alert, GCS 15, non-toxic Head: normocephalic, atraumatic Eyes: bilateral eye normal inspection, bilateral eye PERRL ENT: hearing grossly normal, normal pharynx, no angioedema, normal voice Neck: full range of motion, supple/symm/no masses Respiratory: chest non-tender, lungs clear, normal breath sounds, no rhonchi, no respiratory distress, speaking full sentences Cardiovascular #1: regular rate, rhythm, no edema Cardiovascular #2: 2+ carotid (R), 2+ carotid (L), 2+ radial (R), 2+ radial (L) , 2+ dorsalis pedis (R), 2+ dorsalis pedis (L) Gastrointestinal: normal bowel sounds, non tender, soft, non-distended, no guarding, no rebound Rectal: deferred Genitourinary: no CVA tenderness Musculoskeletal: back normal, no calf tenderness, non-tender, other - no inpingment sign Neurologic: alert, motor strength/tone normal, oriented x3, sensory intact, responsive, speech normal Psychiatric: judgement/insight normal, memory normal, mood/affect normal, no suicidal/homicidal ideation Skin: no rash Lymphatic: no adenopathy Medical Decision Making PA Attestation All diagnoses and treatment plans were reviewed and discussed with my supervising physician Dr. Torres Diagnostic Impression: Primary Impression: Shoulder tendinitis ER Course 39-year-old female with no significant past medical history here complaining of over 1 month of left shoulder pain rating it 7 out of 10 with range of motion. Patient reports that she has been drives with left hand and shoulder. Complains of intermittent tingling. Denies any fall or injury. No impingement sign noted. Patient is neurovascularly intact. Has not taken medication for symptom relief. Denies any chest pain chest pain radiation. Denies headache and dizziness. Denies any strenuous physical activity. Denies . Ddx considered but are not limited to : Shoulder strain versus fracture versus sprain versus tendinitis versus rotator cuff injury Vital signs: are WNL, pt. is afebrile H&PE are most consistent with: Shoulder tendinitis ORDERS: Left shoulder x-ray, Robaxin, Motrin, lidocaine patch ED INTERVENTIONS: Reports any pain medication helps DISCHARGE: At this time pt. is stable for d/c to home. Will provide printed patient care instructions, and any necessary prescriptions. Care plan and follow up instructions have been discussed with the patient prior to discharge. Patient take medication as directed, follow-up primary care provider, if worsening symptoms return to the emergency room Other X-Ray Diagnostic Results Other X-Ray Diagnostic Results : X-Ray ordered: left shoulder # of Views/Limited Vs Complete: 3 View Indication: Pain EP Interpretation: Yes PA Xray: Interpretation reviewed, by supervising MD, and agrees with findings. Interpretation: no dislocation, no soft tissue swelling, no fractures Impression: No acute disease Electronically Signed by: Glory Mcdonald PA-C Last Vital Signs Date Time Temp Pulse Resp B/P (MAP) Pulse Ox O2 Delivery O2 Flow Rate FiO2 9/2/20 13:56 98.4 63 16 130/86 (101) 99 Room Air Disposition: HOME, SELF-CARE Condition: Stable Patient Instructions: Bicipital Tendonitis Additional Instructions: Patient take medication as directed, follow-up primary care provider, if worsening symptoms return to the emergency room Glory Torres Apr 04, 2020 14:24
--- NOTE | 2020-04-04 14:25 | NUR ---
ED Nurse Note: pt going to radiology
--- NOTE | 2020-04-04 14:42 | NUR ---
ED Nurse Note: pt back from radiology. no acute distress noted.
[2020-04-04] MEDS ORDERED: IBUPROFEN600 M1 ORAL (15:10)
[2020-04-04] MEDS ORDERED: ROBAXIN-500MG ORAL (15:10)
[2020-04-04] MEDS ORDERED: LIDODERM700 M1 TOPIC (15:10)
[2020-04-04 15:15] VITALS: BP 130/86
--- NOTE | 2020-04-04 15:15 | NUR ---
ED Nurse Note: Pt cleared by health care Provider for discharge. DC instructions/prescription was given and explained to pt and verbalized understanding of teachings. All medical deviecs such as ID band removed. Pt is AAO x4, ambulatory and left with all personal belongings.
--- NOTE | 2020-04-04 17:15 | Diagnostic Imaging Report ---
Indication: Shoulder pain Technique: 3 views of the left shoulder Comparison: none Findings: No acute fractures. No dislocations. The joint spaces are preserved Impression: Negative
== END 2020-04-04 15:19 | disposition home or self-care (01) ==
LOC: EMR 14:41
DX: M75.22 Bicipital tendinitis, left shoulder (principal); J45.909 Unspecified asthma, uncomplicated
CPT/HCPCS: 73030; Z7502; 99283